=== PATIENT | male | born 1985 | race African-American/Black ===

== ENCOUNTER 2017-12-06 04:00 | Emergency (ER) | payer BC, OTHER ==
[~2017-12-06] VITALS: Ht 172.7 cm; Wt 82.6 kg
[2017-12-06 04:00] VITALS: BP 146/55
--- NOTE | 2017-12-06 04:15 | NUR ---
32/M CAME IN ED, C/O PRODUCTIVE COUGH, BODY ACHES, CHILLS, INTERMITTENT CHEST DISCOMFORT AND RINGING IN EARS, X1 WEEK. PT REPORTS TAKING OTC IBUPROFEN AND DAYQUIL/NYQUIL WITH LITTLE RELIEF. PT REPORTS WORKING IN A FREEZER. HX ASTHMA. PT DENIEX RX. NKA. PT DENIES FEVER, SOB, N/V/D; SKIN IS INTACT, PINK/WARM/DRY; AAOX4, PERRL, WITH EVEN AND STEADY GAIT; VSS; PATIENT POSITIONED FOR COMFORT; HOB ELEVATED; BEDRAILS UP X2; BED DOWN. Addendum: 12/06/17 at 0425 by DAMIR PT DENIES MEDICAL HX
[2017-12-06 04:45] VITALS: BP 118/80
--- NOTE | 2017-12-06 04:45 | NUR ---
Patient discharged with v/s stable. Written and verbal after care instructions given and explained. Patient alert, oriented and verbalized understanding of instructions. Ambulatory with steady gait. All questions addressed prior to discharge. ID band removed. Patient advised to follow up with PMD. Rx of MOTRIN 800MG, PREDNISONE 20MG given. Patient educated on indication of medication including possible reaction and side effects. Opportunity to ask questions provided and answered.
== END 2017-12-06 04:45 | disposition home or self-care (01) ==
LOC: MED 04:00
DX: R05 Cough (principal); R07.89 Other chest pain; H92.02 Otalgia, left ear
CPT/HCPCS: 99283